=== PATIENT | male | born 1990 | race Caucasian/White ===

== ENCOUNTER 2017-01-05 11:55 | Emergency (ER) | payer OTHER ==
[2017-01-05 13:40] LABS: BASOPHIL % 0.7 % (0-2); PLATELET COUNT 278 x10^3mcL (130-400); RED CELL DISTRIBUTION WIDTH 12.9 % (11.5-14.5)
[2017-01-05 13:46] LABS: CALCIUM 9.3 mg/dL (8.5-10.1); CARBON DIOXIDE 27.4 mmol/L (21-32); CHLORIDE SERUM 100 mmol/L (98-107); CREATININE SERUM 1.1 mg/dL (0.7-1.3); GFR1 > 60 mL/min; GLUCOSE SERUM 159 mg/dL (74-106); POTASSIUM SERUM 3.3 mmol/L (3.5-5.1); SODIUM SERUM 135 mmol/L (136-145)
[2017-01-05 14:51] VITALS: BP 138/74
== END 2017-01-05 14:51 | disposition home or self-care (01) ==
LOC: ED 11:55
PROVIDERS: Emergency Medicine
DX: R07.89 Other chest pain (principal); R03.0 Elevated blood-pressure reading, without diagnosis of hypertension
CPT/HCPCS: J1885; J2060; Q0092

== ENCOUNTER 2017-10-31 19:39 | Emergency (ER) | payer OTHER ==
[~2017-10-31] VITALS: Ht 175.3 cm; Wt 113.2 kg
[2017-10-31 20:02] VITALS: Ht 175.3 cm; Wt 113.2 kg
[2017-10-31 20:27] LABS: microscopic required? NO
[2017-10-31 20:41] LABS: UA SPECIFIC GRAVITY 1.025 (1.005-1.035); urine erythrocyte NEGATIVE (NEGATIVE)
[2017-10-31 21:36] VITALS: BP 140/96
== END 2017-10-31 21:36 | disposition home or self-care (01) ==
LOC: ED 19:39
PROVIDERS: Emergency Medicine
DX: N34.2 Other urethritis (principal)
CPT/HCPCS: 87491; 87591

== ENCOUNTER 2018-05-21 16:09 | Emergency (ER) | payer OTHER ==
[2018-05-21 16:42] VITALS: Ht 175.3 cm
[2018-05-21 18:41] VITALS: BP 155/71
== END 2018-05-21 18:41 | disposition home or self-care (01) ==
LOC: ED 16:09
DX: N48.89 Other specified disorders of penis (principal); R03.0 Elevated blood-pressure reading, without diagnosis of hypertension; Z98.890 Other specified postprocedural states
CPT/HCPCS: 87491; 87591; J0696

== ENCOUNTER 2019-03-03 13:18 | Emergency (ER) | payer OTHER ==
[~2019-03-03] VITALS: Ht 175.3 cm; Wt 111.1 kg
[2019-03-03 13:55] VITALS: BP 129/81; Ht 175.3 cm; Wt 111.1 kg
== END 2019-03-03 16:41 | disposition left against medical advice (07) ==
LOC: ED 13:18
DX: Z53.21 Procedure and treatment not carried out due to patient leaving prior to being seen by health care provider (principal)

== ENCOUNTER 2019-04-06 12:20 | Emergency (ER) | payer OTHER ==
[~2019-04-06] VITALS: Ht 175.3 cm; Wt 108.9 kg
[2019-04-06 12:21] VITALS: Ht 175.3 cm; Wt 108.9 kg
[2019-04-06 16:43] VITALS: BP 125/62
== END 2019-04-06 16:43 | disposition home or self-care (01) ==
LOC: ED 12:20
DX: L03.115 Cellulitis of right lower limb (principal); M21.70 Unequal limb length (acquired), unspecified site
CPT/HCPCS: 36415; J1885

== ENCOUNTER 2019-08-20 20:48 | Emergency (ER) | payer OTHER, SELFPAY ==
[~2019-08-20] VITALS: Ht 175.3 cm; Wt 104.3 kg
[~2019-08-20 20:48] MED LIST: VITAMIN D-40400 UNIT PO; VITC PO; ZINC50 M4 PO
[2019-08-20 20:51] VITALS: Ht 175.3 cm; Wt 104.3 kg
[2019-08-20 22:48] VITALS: BP 124/79
== END 2019-08-20 22:48 | disposition home or self-care (01) ==
LOC: ED 20:48
DX: U07.1 COVID-19 (principal); F41.9 Anxiety disorder, unspecified
CPT/HCPCS: Q0092

== ENCOUNTER 2020-05-05 12:31 | Emergency (ER) | payer OTHER ==
[~2020-05-05] VITALS: Ht 175.3 cm; Wt 115.2 kg
[2020-05-05 12:59] VITALS: Ht 175.3 cm; Wt 115.2 kg
[2020-05-05 14:33] VITALS: BP 148/84
== END 2020-05-05 14:33 | disposition home or self-care (01) ==
LOC: ED 12:31
DX: H60.92 Unspecified otitis externa, left ear (principal); H66.92 Otitis media, unspecified, left ear